=== PATIENT | male | born 1985 | race Caucasian/White ===

== ENCOUNTER 2018-10-22 23:23 | Emergency (ER) | payer MEDICAID, OTHER, SELFPAY ==
[~2018-10-22] VITALS: Ht 170.2 cm; Wt 77.0 kg
[2018-10-22 23:24] VITALS: BP 139/85
== END 2018-10-23 01:16 | disposition left against medical advice (07) ==
LOC: M ED 23:23
DX: Z53.29 Procedure and treatment not carried out because of patient's decision for other reasons (principal)

== ENCOUNTER 2020-07-01 14:25 | Emergency (ER) | payer OTHER, SELFPAY ==
[~2020-07-01] VITALS: Ht 170.2 cm; Wt 75.9 kg
[2020-07-01 16:01] LABS: HEMATOCRIT 47.3 % (42.0-52.0); MEAN CORPUSCULAR HGB CONC 33.8 g/dl (32.0-36.5); MEAN CORPUSCULAR VOLUME 97.5 fl (80.0-96.0); PLATELET COUNT, AUTOMATED 327 10^3/uL (150-450); RED BLOOD COUNT 4.85 10^6/uL (4.30-6.10); WHITE BLOOD COUNT 16.9 10^3/uL (4.0-10.0)
[2020-07-01 16:25] LABS: ACETAMINOPHEN LEVEL < 2.0 UG/ML (10.0-30.0); ALBUMIN 4.2 GM/DL (3.2-5.2); ALT/SGPT 25 U/L (12-78); BILIRUBIN,DIRECT 0.2 MG/DL (0.0-0.2); BILIRUBIN,TOTAL 0.7 MG/DL (0.2-1.0); BLOOD UREA NITROGEN 15 MG/DL (7-18); CALCIUM LEVEL 9.8 MG/DL (8.5-10.1); CARBON DIOXIDE LEVEL 32 MEQ/L (21-32); CHLORIDE LEVEL 103 MEQ/L (98-107); CREATININE FOR GFR 1.13 MG/DL (0.70-1.30); ETHYL ALCOHOL (ETHANOL) < 0.003 % (0.000-0.010); GLOMERULAR FILTRATION RATE > 60.0 (>60); GLUCOSE, FASTING 95 MG/DL (70-100); POTASSIUM SERUM 5.5 MEQ/L (3.5-5.1); SALICYLATE LEVEL < 1.7 MG/DL (5.0-30.0); SODIUM LEVEL 139 MEQ/L (136-145); THYROID STIMULATING HORMONE 0.439 uIU/ML (0.358-3.740); TOTAL PROTEIN 7.4 GM/DL (6.4-8.2)
[2020-07-01 16:47] VITALS: BP 131/79
[2020-07-01 16:51] LABS: AMPHETAMINES LEVEL URINE POSITIVE (NEGATIVE); BARBITURATES URINE NEGATIVE (NEGATIVE); BENZODIAZEPINES URINE NEGATIVE (NEGATIVE); CANNABINOIDS URINE POSITIVE (NEGATIVE); COCAINE METABOLITE URINE NEGATIVE (NEGATIVE); METHADONE URINE NEGATIVE (NEGATIVE); OPIATES URINE NEGATIVE (NEGATIVE); PHENCYCLIDINE URINE NEGATIVE (NEGATIVE)
== END 2020-07-01 17:12 | disposition home or self-care (01) ==
LOC: M ED 14:25
DX: F43.0 Acute stress reaction (principal); F17.200 Nicotine dependence, unspecified, uncomplicated

== ENCOUNTER 2020-10-24 19:31 | Emergency (ER) | payer SELFPAY ==
[~2020-10-24] VITALS: Ht 170.2 cm; Wt 75.2 kg
[2020-10-24 19:33] VITALS: BP 129/76
== END 2020-10-24 21:06 | disposition left against medical advice (07) ==
LOC: M ED 19:31
DX: Z53.21 Procedure and treatment not carried out due to patient leaving prior to being seen by health care provider (principal)

== ENCOUNTER 2020-12-18 23:58 | Inpatient (IN) | payer SELFPAY ==
[~2020-12-18] VITALS: Ht 170.2 cm; Wt 68.9 kg
[2020-12-19 00:41] LABS: HEMATOCRIT 43.9 % (42.0-52.0); MEAN CORPUSCULAR HEMOGLOBIN 32.8 pg (27.0-33.0); MEAN CORPUSCULAR HGB CONC 34.2 g/dl (32.0-36.5); MEAN CORPUSCULAR VOLUME 96.1 fl (80.0-96.0); PLATELET COUNT, AUTOMATED 298 10^3/uL (150-450); RED BLOOD COUNT 4.57 10^6/uL (4.30-6.10); WHITE BLOOD COUNT 13.6 10^3/uL (4.0-10.0)
[2020-12-19 00:53] LABS: AMPHETAMINES LEVEL URINE POSITIVE (NEGATIVE); BARBITURATES URINE NEGATIVE (NEGATIVE); BENZODIAZEPINES URINE POSITIVE (NEGATIVE); CANNABINOIDS URINE POSITIVE (NEGATIVE); COCAINE METABOLITE URINE POSITIVE (NEGATIVE); METHADONE URINE NEGATIVE (NEGATIVE); OPIATES URINE NEGATIVE (NEGATIVE); PHENCYCLIDINE URINE NEGATIVE (NEGATIVE)
[2020-12-19] MEDS ORDERED: HOME MED LIST COMPLETE! XX SCH (01:00)
[2020-12-19 01:02] LABS: ACETAMINOPHEN LEVEL < 2.0 UG/ML (10.0-30.0); ALBUMIN 3.5 GM/DL (3.2-5.2); ALT/SGPT 32 U/L (12-78); BILIRUBIN,DIRECT < 0.1 MG/DL (0.0-0.2); BILIRUBIN,TOTAL 0.3 MG/DL (0.2-1.0); BLOOD UREA NITROGEN 21 MG/DL (7-18); CALCIUM LEVEL 8.8 MG/DL (8.5-10.1); CARBON DIOXIDE LEVEL 28 MEQ/L (21-32); CHLORIDE LEVEL 104 MEQ/L (98-107); ETHYL ALCOHOL (ETHANOL) 0.003 % (0.000-0.010); GLOMERULAR FILTRATION RATE > 60.0 (>60); GLUCOSE, FASTING 104 MG/DL (70-100); POTASSIUM SERUM 4.1 MEQ/L (3.5-5.1); SALICYLATE LEVEL < 1.7 MG/DL (5.0-30.0); SODIUM LEVEL 138 MEQ/L (136-145); THYROID STIMULATING HORMONE 0.691 uIU/ML (0.358-3.740)
[2020-12-19 14:19] LABS: RSV AMPLIFICATION NEGATIVE (NEGATIVE)
[2020-12-19] MEDS ORDERED: MAALOX 30 ML SUSP *UDC PO PRN (16:55)
[2020-12-19] MEDS ORDERED: LORazepam 2 MG TAB PO PRN (16:55)
[2020-12-19] MEDS ORDERED: haloperidoL 5 MG TAB PO PRN (16:55)
[2020-12-19] MEDS ORDERED: MOM 30ML SUSPENSION UDC PO PRN (16:55)
[2020-12-19] MEDS ORDERED: BENZTROPINE 1 MG TAB PO PRN (16:55)
[2020-12-19] MEDS ORDERED: NICOTINE 21MG/24HR 1 EA TRANSDERMAL TD PRN (16:55)
[2020-12-19] MEDS ORDERED: ACETAMINOPHEN TAB 650MG DOSE (2X325MG) PO PRN (16:55)
[2020-12-19] MEDS ORDERED: traZODone 50 MG TAB PO PRN (16:55)
[2020-12-19 19:04] VITALS: BP 112/75
--- NOTE | 2020-12-20 08:30 | MHIPN ---
PSYCH NOTE DATE: 12/19/2020 This is a short note regarding Mr. Barros, whose situation and case was presented to me by the Emergency Room Pot Puncher, [facility], patient had sent his mother text messages, indicating suicidal thoughts, patient's condition was thought to be concerning enough to recommend hospitalization.
[2020-12-20] MEDS ORDERED: INFLUENZA QUADRIVALENT PF VACCINE 0.5ML SYRINGE IM ONE (09:00)
--- NOTE | 2020-12-20 16:17 | CR.PDOC ---
General Date of Consultation: Dec 20, 2020 Referring Provider: Toney Connelly MD Attending Physician: Ness Stein MD Consultation REASON FOR CONSULTATION/CHIEF COMPLAINT: [Medical examination for [facility] admission]. HISTORY OF PRESENT ILLNESS: [This is a 35 y/o male with hx of polysubstance abuse admitted to the [facility] on 12/19 for psychiatric management. Hospitalist team was consulted for a medical exam and co-medical management if needed. I saw and examined Mr. Weaver on 12/20 who was uncooperative with history and physical. Patient answered questions abruptly and frequently with only yes/no answers. Patient tells me that he has no medical issues or complaints. Patient denies recent illness, sick contacts]. ALLERGIES: Please see below. HOME MEDICATIONS: Please see below. PAST MEDICAL HISTORY: 1. [See HPI PAST SURGICAL HISTORY: 1. [Reviewed - none FAMILY HISTORY: reviewed - none SOCIAL HISTORY: Tobacco use:[current smoker] ETOH: [denies] Illicit drug use: [hx of polysubstance abuse] REVIEW OF SYSTEMS: CONSTITUTIONAL: [Denies fevers, chills]. HEENT: [Denies uri type sx]. CARDIOVASCULAR: [Denies chest pain, palpitations]. RESPIRATORY: [Denies sob, cough]. GENITOURINARY: [Denies dysuria]. MUSCULOSKELETAL: [Denies acute joint/back pain]. GASTROINTESTINAL: [Denies abd pain, n/v/d/c]. SKIN: [Denies rash]. NEUROLOGICAL: [Denies syncope]. ENDOCRINE: [Denies hx of DM]. HEMATOLOGIC/LYMPHATIC: [Denies hx of vte]. PHYSICAL EXAMINATION: VITAL SIGNS: Please see below. GENERAL APPEARANCE: [Fatigued appearing 35 y/o male. He is alert and oriented to all questioning. Does not appear to be in any acute distress.]. HEENT: [No mass or lesion. EOMI. No scleral icterus. Nares patent. Oral mucosa moist]. RESPIRATORY: [Good air flow b/l. No wheezing, rales, rhonchi]. CARDIOVASCULAR: [Regular rate, rhythm. No murmurs, rubs, gallops]. ABDOMEN: [Soft, nontender]. EXTREMITIES: [No pedal edema appreciated. No overlying skin changes]. NEUROLOGICAL: [Speech clear. A+Ox3. Patient moves all fours freely. No focal deficits]. PSYCHIATRIC: [Flat affect. Depressed mood]. LABORATORY DATA: Please see below. ASSESSMENT/PLAN: 1. [Depressive mood d/o - Psychiatric medications per primary team.] 2. [Polysubstance abuse - pt toxicology positive for benzos - should monitor for withdrawal effects - agree with ativan q6h 3. Nicotine use - patch ordered DVT prophylaxis - pt ambulatory Thank you for consulting hospitalist team. Please reconsult as necessary]. Vital Signs/I&O Vital Signs Date Time Temp Pulse Resp B/P (MAP) Pulse Ox O2 Delivery O2 Flow Rate FiO2 12/19/20 19:04 98.5 89 18 112/75 (87) 96 Room Air Allergies Coded Allergies: No Known Allergies (Unverified , 10/22/18) Home Medications No Active Prescriptions or Reported Meds AJITH RUELAS Dec 20, 2020 16:17
--- NOTE | 2020-12-20 17:35 | MHHPEPDOC ---
General Legal Status: 9.39 Chief Complaint Angry, made suicidal statements History of Present Illness HISTORY OF THE PRESENT ILLNESS: Patient is a 35 -year-old , male * Pt states that he thinks his ex-girlfriend called the police & that she told police that he was going to kill himself in a field via OD on heroin. Pt states that his ex has called the police before & reported that he was suicidal because she is angry at him. Pt denies making any suicidal statements to anyone. He also states that he did not threaten to burn the house down. He denies sending any texts to his mother. Pt denies both SI & HI. He reports a hx of one suicide attempt via cutting when he was 12 y/o. He denies any hx of self- harm. Pt denies both AH & VH. He does not appear to be psychotic. Pt c/o depressed mood, poor concentration, increased energy levels, & poor sleep. Pt states that his main stressor is that his ex & her parents rarely allow him to see his children. Pt states that he was supposed to have his kids all week but they did not allow him to see his kids at all. Pt states that he also recently lost his job. Pt reports a hx of ADHD with no admissions. Pt does not currently have OP tx & states that he will not go to OP tx because "I don't trust anybody." Pt denies any alcohol use. He reports that he uses meth twice a month, cocaine a couple times a year, & MJ daily. He states that he found a bag of pills in a parking lot & he took one of them. He states he looked up what the pill was on his phone but he does not remember the name of it. Pt's tox screen was positive for cannabis, amphetamines, cocaine, & benzos. TW spoke to pt's mother with his permission, No ([phone]). She states that she deleted the texts that pt sent her & she does not remember exactly what they said. She states "you will just have to do the evaluation without my information." She states that he made a "general suicidal statement" & she has no concerns about him being DC. Pt came out of his room after TW finished his assessment & was agitated. He stated that he wanted to leave & he would fight someone to get out. TW & security aide, Jose Prince, spoke to pt at length. At that point he admitted that sometimes he says he would be better off , but states he does not mean it & does not want to kill himself. He showed TW the text messages that he sent to his mother & there was a message about being better off & to say goodbye to his kids. He states that he wanted her to say goodbye to the kids for him because his ex will probably never let him see them again. There was also a text that stated "dad can't stop me from doing what I'm going to do" & pt states that was in reference to his father not wanting him to build things on the property. At another point pt stated that sometimes he thinks he would be better off , but then a few minutes later stated that he never told TW that. He also told ED MD that he has passive SI, but alleges that he never spoke to ED MD. Pt is very inconsistent with his answers to questions & is a poor historian. He appears to be minimizing in order to be DC. Pt was agitated again when TW informed him that the psychiatrist on-call determined that he needs admission. He stated "I hate you and you lied to me." He states that TW lied to him because TW told him that he had to speak to the ED MD before the psychiatrist consult could be completed & he states that the ED MD did not speak to him at all. TW informed him that Dr. Dick spoke to him between 0600 & 0630. He began yelling at stating that TW was lying. He was able to calm himself fairly quickly. Patient states that his tax really did not want to live and was going to burn down his girlfriend's house where an accurate he lives with in his parents house actually in the trailer in the backyard his girlfriend lives in a different place she has 3 children of his he has 2 other children he states she has been unable to focus he states that he paid the back taxes of his of the mother of his children and "she got Rich selling [employer] property and says she does not need me anymore he states since April he has not been able to work. He states his medical history is negative his surgical history is negative his neurological history is negative he states his parents were 70 and 59 respectively also lives with his brother his brother's girlfriend and 5 children patient states "I sleep forever I rest my head mostly in a trailer on the property patient got fired and is presently collecting unemployment he has a high school education and he has worked in [employer] and [employer] family history of psychiatric problems is negative patient does not use alcohol he states she smokes weed however his toxicology screen was positive for cocaine and methamphetamines and he also took ecstasy on he states he is been diagnosed with ADHD but not treated for it. He made a suicide attempt at age 12 his toxicology screen was also positive for benzodiazepines states "I wish I had not said I would hurt myself. Psychiatric Review of Systems Depression (2 or more weeks): feelings of worthlesness, suicidal thoughts Cindy (4 or more days of): denies Psychosis: denies PTSD: denies Anxiety: situational anxiety Anxiety/ 6 months or more of: restlessness, keyed up Past Psychiatric History Previous Psychiatric Diagnosis: No known diagnosis. Previous Psychiatric Admissions: No previous admission. Suicide Attempts: When he was 12. Psychiatric Follow-up: No known follow-up. Psychiatric medications: No known psychiatric medications. Past Medical History Medical Problems Negative for medical problems Head Injury: No Seizures: No Hospitalizations: No Surgeries: No Family Medical/Psychiatric HX Psychiatric Disorders: No Addiction: No Addiction History cocaine, ecstasy, amphetamines, methamphetamines Social History Childhood: Noncontributory. Abuse/Trauma: No history of abuse. Current Living Situation: Lives in a trailer in his parent's property. Education: Some high school. Employment: Recently fired. Social Support: Mother and father support. Legal: No legal history. Marital: 5 children by 2 different women. Mental Status Examination General Appearance: appears stated age Build: thin Demeanor: mistrustful Eye Contact: average Activity: agitated Behavior: resistant Speech: clear Mood: anxious, angry Affect: labile Thought Process: logical/linear Thought Content (Delusions): none reported Thought Content (Aggressive): intent Perception (Hallucinations): none reported Perception (Other): none reported Cognition (Impairment of): none reported Cognition(Intelligence Est.): average Oriented: Awake, Alert, Oriented times three Insight: poor Judgment: Poor Psychosis: Denies Diagnoses Situational anxiety and depression, substance abuse A-FIB/CHADSVASC A-FIB History Current/History of A-Fib/PAF?: No Current PO Anticoag Therapy: No Age/Risk Factor Scoring CHADSVASC: CHADSVASC Response (Comments) Value Gender Risk Factor Male 0 Hx of CHF No 0 Hx of HTN No 0 Hx of Stroke/TIA/or VTE No 0 Hx of Diabetes No 0 Hx of Vascular Disease No 0 Total 0 Treatment Treatment ordered: NONE Reason Anticoagulant not given: Not indicated/[id number] Initial Treatment Plan 1. Patient was admitted on a [9.39] status. 2. Complete history was obtained. 3. With patients permission, family will be contacted and database will be expanded. 4. Patients medication regimen will be reviewed and changed accordingly. 5. Patient will be provided with protected environment. 6. Patient will be treated with individual, group, and milieu therapies. 7. Patient will receive supportive psych-education. 8. Discharge planning will commence immediately. 9. Outpatient follow-up treatment will be strongly recommended. 10. The initial treatment plan will focus initially on: * Depression. * Risk for suicide. ESTIMATED LENGTH OF STAY: - DAYS. TIME SPENT COUNSELING AND COORDINATING INITIAL CARE: minutes. Ordered/Pending Vital Signs Vital Signs Date Time Temp Pulse Resp B/P (MAP) Pulse Ox O2 Delivery O2 Flow Rate FiO2 12/19/20 19:04 98.5 89 18 112/75 (87) 96 Room Air Medications No Active Prescriptions or Reported Meds Allergies Coded Allergies: No Known Allergies (Unverified , 10/22/18) RIZWANA FAIRBANKS MD Dec 20, 2020 17:35
[2020-12-20 17:48] VITALS: BP 112/84
--- NOTE | 2020-12-21 09:54 | MHDSPDOC ---
[facility] Discharge Summary Discharge Summary DATE OF ADMISSION: Dec 19, 2020 at 16:52 DATE OF DISCHARGE: 2020 DISCHARGE DIAGNOSES: 1. Family stressors. 2. Substance abuse. REASON FOR ADMISSION: HISTORY OF THE PRESENT ILLNESS: Patient is a 35 -year-old , male * Pt states that he thinks his ex-girlfriend called the police & that she told police that he was going to kill himself in a field via OD on heroin. Pt states that his ex has called the police before & reported that he was suicidal because she is angry at him. Pt denies making any suicidal statements to anyone. He also states that he did not threaten to burn the house down. He denies sending any texts to his mother. Pt denies both SI & HI. He reports a hx of one suicide attempt via cutting when he was 12 y/o. He denies any hx of self-indu m. Pt denies both AH & VH. He does not appear to be psychotic. Pt c/o depressed mood, poor concentration, increased energy levels, & poor sleep. Pt states that his main stressor is that his ex & her parents rarely allow him to see his children. Pt states that he was supposed to have his kids all week but they did not allow him to see his kids at all. Pt states that he also recently lost his job. Pt reports a hx of ADHD with no admissions. Pt does not currently have OP tx & states that he will not go to OP tx because "I don't trust anybody." Pt denies any alcohol use. He reports that he uses meth twice a month, cocaine a couple times a year, & MJ daily. He states that he found a bag of pills in a parking lot & he took one of them. He states he looked up what the pill was on his phone but he does not remember the name of it. Pt's tox screen was positive for cannabis, amphetamines, cocaine, & benzos. CONSULTANTS INVOLVED: TREATMENT AND PROGRESS ON THE UNIT : Patient denied his previous statements and stated he had no intention of hurting himself. Patient was using numerous substances and was upset about not being able to see his children as well as having conflict with his girlfriend/mother of his children HOSPITAL COURSE: Patient was generally angry and agitated for being in the hospital. He continued to deny any suicidal ideation or intent DISCHARGE ASSESSMENT: Relationship problems with mother of his children associated with substance abuse MENTAL STATUS EXAMINATION ON DISCHARGE: Patient is a 35-year old male, who is cheerful cooperative on discharge. Speech is no abnormalities. Language skills are intact. Thought processes including: Focused on discharge and denying any intent to harm or himself or others. Thought content: As above. Abstract reasoning, and computation: Poor abstraction. Description of associations: No loose associations. Description of abnormal or psychotic thoughts: No psychotic. Judgment: Poor. Insight: Poor. Orientation to x3. Recent and remote memory: Intact. Attention span and concentration: Intact. Language: No disturbance. Fund of knowledge: Full. Mood: Good. Affect: Bright. MEDICATIONS ON DISCHARGE: -No medications on discharge PLAN/FOLLOWUP ARRANGEMENTS: As per automatic data processing planner. The amount of time spent in the coordination of care for this patient was approximately 35 minutes. ETOH/Disorder Med Rx ETOH/DRUG DISORDER RX: Offrd @ d/c & pt refused Vital Signs/I&Os Vital Signs Date Time Temp Pulse Resp B/P (MAP) Pulse Ox O2 Delivery O2 Flow Rate FiO2 12/20/20 17:48 97.9 72 16 112/84 (93) 100 Room Air Medications No Active Prescriptions or Reported Meds Allergies Coded Allergies: No Known Allergies (Unverified , 10/22/18) RIZWANA FAIRBANKS MD Dec 21, 2020 09:54
== END 2020-12-21 10:56 | disposition home or self-care (01) | DRG 754 ==
LOC: M ED 23:58 → M ED INP 12-19 16:52 → M PSY 12-19 17:50
PROVIDERS: ADMIT Psychiatry & Neurology Child & Adolescent Psychiatry; ATTEND Psychiatry & Neurology Child & Adolescent Psychiatry
DX: F32.9 Major depressive disorder, single episode, unspecified (principal); F41.9 Anxiety disorder, unspecified; F14.10 Cocaine abuse, uncomplicated; F15.10 Other stimulant abuse, uncomplicated; F12.10 Cannabis abuse, uncomplicated; Z20.822 Contact with and (suspected) exposure to COVID-19; R45.851 Suicidal ideations; Z91.5 Personal history of self-harm; Z63.79 Other stressful life events affecting family and household; F17.210 Nicotine dependence, cigarettes, uncomplicated